=== PATIENT | male | born 1995 | race Caucasian/White ===

== ENCOUNTER 2021-06-29 18:23 | Emergency (ER) | payer OTHER ==
[~2021-06-29] VITALS: Ht 175.3 cm; Wt 82.0 kg
[2021-06-29 18:30] VITALS: BP 122/80
== END 2021-06-29 21:12 | disposition home or self-care (01) ==
LOC: ER 18:23
DX: M54.5 Low back pain (principal); Z98.890 Other specified postprocedural states
CPT/HCPCS: 99281